=== PATIENT | female | born 1960 | race African-American/Black ===

== ENCOUNTER 2017-07-12 07:54 | Observation (INO) ==
[2017-07-12] MEDS ORDERED: *HR* OxyCODONE Immed Rel 5 MG TABLET PO ONE (08:14)
--- NOTE | 2017-07-12 08:14 | Emergency Department Note ---
Disposition Clinical Impression: Stroke Qualifiers: CVA mechanism: unspecified Qualified Code(s): I63.9 - Cerebral infarction, unspecified Rib contusion Qualifiers: Encounter type: initial encounter Laterality: right Qualified Code(s): S20.211A - Contusion of right front wall of thorax, initial encounter Fall Qualifiers: Encounter type: initial encounter Qualified Code(s): W19.XXXA - Unspecified fall, initial encounter Disposition: Admitted As Inpatient Condition: Good Referrals: NONE,PCP [Non-Partnered Physician] - Forms: ED Satisfaction Letter Fall HPI - General Chief Complaint: ED Fall Stated Complaint: FELL Time Seen by Provider: 07/12/17 08:00 Source: EMS Mode of arrival: ambulatory Limitations: no limitations Nursing Notes Reviewed: Yes Vital Signs Reviewed: Yes - History of Present Illness HPI Narrative: 56-year-old female with past medical history of diabetes and seizures presents for evaluation of chest pain. Patient states that she awoke with right-sided chest pain. She was with her neighbor last night drinking. She states she cannot remember how much she was drinking. Her neighbor states that she fell. She has unknown head injury or LOC. Patient states that the fall occurred on this right side and that her friend is worried she may have fractured ribs. The patient has significant tenderness to palpation of the lower anterior chest as well as right lateral ribs. Patient has no abdominal tenderness. Patient has no loss of motor or sensory function to the extremities. Patient's chest pain is worse with inspiration. Not worse with exertion. Sharp in nature. - Related Data Home Medications Medication Instructions Recorded Confirmed Citalopram [CeleXA] 10 mg PO DAILY 01/29/17 07/10/17 Enalapril Maleate [Vasotec] 2.5 mg PO DAILY 01/29/17 07/10/17 Gabapentin [Neurontin] 1 tab PO TID 01/29/17 07/10/17 Ipratropium/Albuterol Neb [Duoneb] 1 inh PO Q4HR PRN 01/29/17 07/10/17 Phenytoin ER [Dilantin ER] 100 mg PO TID 01/29/17 07/10/17 clonazePAM [Klonopin] 1 tab PO BID 01/29/17 07/10/17 Atorvastatin [Lipitor] 40 mg PO HS 02/13/17 07/10/17 Nebulizer [Vixone Nebulizer] 1 each IH AD 02/13/17 07/10/17 Albuterol Sulfate [Albuterol 2 puff IH AD 07/10/17 07/10/17 Inhaler] Previous Rx's Medication Instructions Recorded Ibuprofen [Motrin] 800 mg PO Q6-8H PRN #30 tablet 12/28/15 Allergies Allergy/AdvReac Type Severity Reaction Status Date / Time sulfamethoxazole Allergy Itching Verified 07/12/17 08:03 [From Bactrim] trimethoprim [From Bactrim] Allergy Itching Verified 07/12/17 08:03 Review of Systems: CONSTITUTIONAL: No weight loss, fever, chills, weakness or fatigue. HEENT: Eyes: No visual changes. Ears, Nose, Throat: No hearing loss, difficulty talking or unable to swallow. SKIN: No rash or itching. CARDIOVASCULAR: Chest pain. RESPIRATORY: Pain with inspiration No shortness of breath, cough or sputum. GASTROINTESTINAL: No anorexia, nausea, vomiting or diarrhea. No abdominal pain or blood. GENITOURINARY: No burning on urination or hematuria. NEUROLOGICAL: No headache, dizziness, syncope, paralysis, ataxia, numbness or tingling in the extremities. No change in bowel or bladder control. 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 CLERICAL history: Reports: non-contributory - Social History Smoking Status: Current every day smoker Alcohol use: Reports: occasionally Drug use: Reports: none Physical Exam General appearance: NAD, conversant Eyes: anicteric sclerae, moist conjunctivae; PERRL HENT: Atraumatic; oropharynx clear with moist mucous membranes and no mucosal ulcerations Neck: Normal inspection; Trachea midline; FROM, supple Lungs: CTA, with normal respiratory effort and no intercostal retractions CV: RRR, no MRGs Abdomen: Soft, non-tender; no rebound or gaurding Extremities: No peripheral edema or extremity lymphadenopathy Skin: Normal temperature; no rash, ulcers or lesions Psych: Appropriate mood and affect Neuro: alert and oriented to person, place and time Musculoskeletal: Tenderness to palpation of the right anterior lateral chest. Patient has pain with movement of the right arm in relation to activation of these associated muscles. Full range of motion of the extremity with sensation intact. Patient has a hard time sitting up secondary to the amount of pain and causes her chest. - General Limitations: no limitations General appearance: alert, in no apparent distress Course - Reevaluation(s) Reevaluation #1: Patient continues to have significant pain despite treatment. On review of patients recent MRI, the patient has had an acute stroke. Further discussing with the patient patient will be brought into the hospital for for further stroke workup and evaluation as she has not had this yet. - Consultations Consultation #1: Discussed with hospitalist, Dr. Swanson, pt accepted for admission. Vital Signs Temperature 97.6 F 07/12/17 07:56 Pulse Rate 72 07/12/17 07:56 Respiratory Rate 16 07/12/17 07:56 Blood Pressure 158/96 07/12/17 07:56 O2 Sat by Pulse Oximetry 95 07/12/17 07:56 Temperature 97.6 F 07/12/17 07:56 Pulse Rate 65 07/12/17 11:27 Respiratory Rate 16 07/12/17 11:27 Blood Pressure 154/78 07/12/17 11:27 O2 Sat by Pulse Oximetry 95 07/12/17 11:27 Oxygen Delivery Oxygen Delivery Room Air Fall - Medical Records Medical records reviewed: Yes I reviewed the patient's medical records. - Lab Data Lab results reviewed: Yes I reviewed the patient's lab results. Result diagrams: 07/12/17 08:59 07/12/17 08:59 Lab Results 07/12/17 07/12/17 07/12/17 Range/Units 08:25 08:59 08:59 WBC 9.5 (4.3-11.1) K/mcL RBC 4.54 (3.82-4.97) M/mcL Hgb 13.3 (11.5-15.4) g/dL Hct 40.2 (35.3-44.9) % MCV 88.5 (83.0-100.0) fL MCH 29.3 (28.0-33.3) pg MCHC 33.1 (31.6-35.5) g/dL RDW 14.6 H (11.5-14.5) % Plt Count 202 (140-400) K/mcL MPV 11.3 (9.4-12.4) fL Immature Gran % 0.5 (0-4) % Seg Neutrophils % 74.5 % Lymphocytes % 19.3 % Monocytes % 4.5 % Eosinophils % 1.0 % Basophils % 0.2 % Neutrophils # 7.1 (1.6-8.9) K/mcL Lymphocytes # 1.8 (0.6-4.6) K/mcL Monocytes # 0.4 (0.0-1.3) K/mcL Eosinophils # 0.1 (0.0-0.6) K/mcL Basophils # 0.0 (0.0-0.2) K/mcL Sodium 143 (136-145) mEq/L Potassium 3.9 (3.5-4.5) mEq/L Chloride 111 H (98-109) mEq/L Carbon Dioxide 21 (19-29) mEq/L BUN 11 (7-20) mg/dL Creatinine 0.64 (0.57-1.11) mg/dL Est GFR ( Amer) > 60 (> 60) Est GFR (Non-Af Amer) > 60 (> 60) BUN/Creatinine Ratio 17 (6-26) Glucose 172 H (70-99) mg/dL Calculated Osmolality 299 (280-300) Calcium 9.1 (8.6-10.8) mg/dL Troponin I (0-0.03) ng/mL Urine Color Yellow (Yellow) Urine Clarity Clear (Clear) Urine pH 5.5 (5.0-8.0) pH Units Ur Specific [place] 1.015 (1.010-1.025) Urine Protein Negative (Neg-Trace) mg/dL Urine Glucose (UA) 250 H (Normal) mg/dL Urine Ketones Trace H (Negative) mg/dL Urine Blood Negative (Negative) Urine Nitrite Negative (Negative) Urine Bilirubin Negative (Negative) Urine Urobilinogen Normal (Normal) mg/dL Ur Leukocyte Esterase Negative (Negative) Ur Culture Indicated? NO (NO) 07/12/17 Range/Units 08:59 WBC (4.3-11.1) K/mcL RBC (3.82-4.97) M/mcL Hgb (11.5-15.4) g/dL Hct (35.3-44.9) % MCV (83.0-100.0) fL MCH (28.0-33.3) pg MCHC (31.6-35.5) g/dL RDW (11.5-14.5) % Plt Count (140-400) K/mcL MPV (9.4-12.4) fL Immature Gran % (0-4) % Seg Neutrophils % % Lymphocytes % % Monocytes % % Eosinophils % % Basophils % % Neutrophils # (1.6-8.9) K/mcL Lymphocytes # (0.6-4.6) K/mcL Monocytes # (0.0-1.3) K/mcL Eosinophils # (0.0-0.6) K/mcL Basophils # (0.0-0.2) K/mcL Sodium (136-145) mEq/L Potassium (3.5-4.5) mEq/L Chloride (98-109) mEq/L Carbon Dioxide (19-29) mEq/L BUN (7-20) mg/dL Creatinine (0.57-1.11) mg/dL Est GFR ( Amer) (> 60) Est GFR (Non-Af Amer) (> 60) BUN/Creatinine Ratio (6-26) Glucose (70-99) mg/dL Calculated Osmolality (280-300) Calcium (8.6-10.8) mg/dL Troponin I 0.00 (0-0.03) ng/mL Urine Color (Yellow) Urine Clarity (Clear) Urine pH (5.0-8.0) pH Units Ur Specific [place] (1.010-1.025) Urine Protein (Neg-Trace) mg/dL Urine Glucose (UA) (Normal) mg/dL Urine Ketones (Negative) mg/dL Urine Blood (Negative) Urine Nitrite (Negative) Urine Bilirubin (Negative) Urine Urobilinogen (Normal) mg/dL Ur Leukocyte Esterase (Negative) Ur Culture Indicated? (NO) - Radiology Data Radiology results reviewed: Yes I reviewed the patient's radiology results. - EKG Data EKG attestation: Yes I reviewed and interpreted this EKG. EKG results narrative: EKG shows sinus rhythm with ventricular rate of 69 bpm. AK interval 147. QRS 98. QTC 435. Nonspecific T-wave abnormalities. EKG unchanged from previous EKG of 05/11/17. Attestation Statement - Attestation Attestation: I examined this patient and my medical decision-making was reviewed with the Resident Physician. I agree with the documented findings, disposition and treatment plan as described except to the extent set forth below. Patient to ED after a fall. Patient states she was drinking and intoxicated last night. She fell at some point because she was intoxicated. Playing a rib pain. Patient also complaining of facial numbness for which she had a recent MRI but does not know the result. On examination she is awake alert pleasant in no acute distress. She is oriented. Appropriate. Does not appear intoxicated. Tenderness over the right lateral ribs. Plan. Cardiac workup with imaging of her ribs. No rib fracture evident on ribs series. The patient does have a subacute stroke on her head CT. We will limit further stroke workup.
[2017-07-12 08:51] LABS: Color,Urine Yellow (Yellow)
[2017-07-12 08:52] LABS: Bilirubin,Urine Negative (Negative); Blood,Urine Negative (Negative); Clarity,Urine Clear (Clear); Glucose,Urine (UA) 250 mg/dL (Normal); Ketones,Urine Trace mg/dL (Negative); Nitrite,Urine Negative (Negative); PH,Urine 5.5 pH Units (5.0-8.0); Protein,Urine Negative (Neg-Trace); Specific Gravity,Urine 1.015 (1.010-1.025); Urobilinogen,Urine Normal (Normal)
[2017-07-12 08:53] LABS: Leukocyte Esterase,Urine Negative (Negative)
[2017-07-12 09:09] LABS: Basophils % 0.2 %; Eosinophils # 0.1 K/mcL (0.0-0.6); Hematocrit 40.2 % (35.3-44.9); Hemoglobin 13.3 g/dL (11.5-15.4); Immature Granulocytes % 0.5 % (0-4); Lymphocytes # 1.8 K/mcL (0.6-4.6); Lymphocytes % 19.3 %; Mean Corpuscular HGB Conc 33.1 g/dL (31.6-35.5); Mean Corpuscular Hemoglobin 29.3 pg (28.0-33.3); Mean Corpuscular Volume 88.5 fL (83.0-100.0); Mean Platelet Volume 11.3 fL (9.4-12.4); Monocytes # 0.4 K/mcL (0.0-1.3); Monocytes % 4.5 %; Neutrophils # 7.1 K/mcL (1.6-8.9); Platelet Count 202 K/mcL (140-400); Red Blood Count 4.54 M/mcL (3.82-4.97); Red Cell Distribution Width 14.6 % (11.5-14.5); Segmented Neutrophils % 74.5 %
[2017-07-12 09:24] LABS: BUN/Creatinine Ratio 17 (6-26); Blood Urea Nitrogen 11 mg/dL (7-20); Calcium 9.1 mg/dL (8.6-10.8); Carbon Dioxide 21 mEq/L (19-29); Chloride 111 mEq/L (98-109); Glucose 172 mg/dL (70-99); Osmolality,Calculated 299 (280-300); Potassium 3.9 mEq/L (3.5-4.5); Sodium 143 mEq/L (136-145); eGFR For African Americans > 60 (> 60); eGFR For Non-African Americans > 60 (> 60)
[2017-07-12] MEDS ORDERED: Ondansetron 4 MG/2 ML VIAL IVP PRN (13:18)
[2017-07-12] MEDS ORDERED: Ibuprofen 400 MG TABLET PO PRN (13:23)
[2017-07-12] MEDS ORDERED: Naloxone 0.4 MG/ML INJ IVP PRN (13:23)
[2017-07-12] MEDS ORDERED: Aspirin 325 MG TABLET PO ONE (13:35)
[2017-07-12] MEDS ORDERED: Acetaminophen 325 MG TABLET PO PRN (13:37)
[2017-07-12] MEDS ORDERED: Dextrose Gel 15 GM PO PRN ×2 (13:45)
[2017-07-12] MEDS ORDERED: *HR* Dextrose 50 % in Water (Syg) 50 ML SYRINGE IVP PRN (13:45)
[2017-07-12] MEDS ORDERED: D5% in Water 1,000 ML IVC PRN (13:45)
--- NOTE | 2017-07-12 13:48 | Internal Med History&Physical ---
Date of Encounter: 07/12/17 Time of Encounter: 13:00 Assessment and Plan (1) Lacunar infarction Current visit: Yes Status: Acute 1 patient has been experiencing difficulty ambulating as well as feeling off balanced. She has been experiencing right-sided numbness and bilateral lower extremity weakness which has been going on for the past few weeks. MRI completed on 07/08/2017 did reveal acute distress of acute lacunar infarct within the periatrial white matter of the left cerebral hemisphere. At that time patient was advised to go to the ER however she had declined. We will continue to monitor patient's neuro status 2 consult neurology -spoke with Dr. 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 insulin use: with chcf use Qualified Code(s): E11.9 - Type 2 diabetes mellitus without complications ; Z79.4 - intermediate designer (current) use of insulin (3) HTN (hypertension) Current visit: No Status: Chronic 1 we will continue with home medications of Vasotec goal is to maintain systolic less than 160 2 low-sodium diet Qualifiers: Hypertension type: essential hypertension Qualified Code(s): I10 - Essential (primary) hypertension (4) Rib contusion Current visit: Yes Status: Acute Qualifiers: Encounter type: initial encounter Laterality: right Qualified Code(s): S20.211A - Contusion of right front wall of thorax, initial encounter (5) Lung cancer Current visit: No Status: Acute Qualifiers: Laterality: right Lung location: lower lobe of lung Qualified Code(s): C34.31 - Malignant neoplasm of lower lobe, right bronchus or lung (6) Seizure disorder Current visit: No Status: Chronic 1 patient has past history of seizure disorder last seizure was 2 years ago. Continue with seizure precautions 2 continue with Dilantin 3 obtain Dilantin level (7) DVT prophylaxis Current visit: No Status: Acute 1 SCD Internal Medicine - H&P: HPI Chief complaint: R sided rib pain Admitted From: Emergency Dept Plans for Post Hospital Care: Home History of present illness: Ms. Miguel is a 56 year old female past cervical history of diabetes hypertension adenocarcinoma right lower lung seizures-last seizure was 2 years ago. According to the patient she has been experiencing right-sided numbness however no tingling in lower extremity weakness bilaterally as well as feeling off balanced with some falls over the past few weeks. She was recently diagnosed with adenocarcinoma of the lung in March and has been receiving radiation therapy her last treatment was a couple weeks ago. She did have an MRI on 07/08/2017 per primary care physician. That did reveal acute subacute lacunar infarct of the left cerebral hemisphere. She was advised at that time to go to the ER which she did decline. Apparently last night she was out with some friends drinking. She did experience a fall however she is not sure if she had struck her head or any LOC. She did fall on her right side. When she awoke this a.m. she was experiencing right-sided chest pain. She presented to the ER with the above complaints. According to ER records lab work was unremarkable chest x-ray did not reveal any rib fractures. CT of head was with no intracranial abnormalities. Due to recent MRI patient's history of numbness and she is complaining of bilateral lower extremity weakness she has been admitted for further workup evaluation. Presently the patient complains of right-sided rib pain. Pain is worse upon inspiration sharp in nature she has significant tenderness to palpation of the lower anterior chest as well as the right lateral ribs. Her lung sounds are clear heart sounds are regular S1 and S2 with no rubs clicks, murmurs noted. Abdomen soft nontender. No pedal edema noted. Neuro exam cranial nerves II through XII are intact patient does follow simple commands pupils are equal and reactive bilaterally. Grafts are equal and strong bilaterally upper extremity strength 5/5. Lower extremity strength 4 /5. She does complain of some dizziness with positional change. She denies any shortness of breath abdominal pain fevers chills nausea vomiting or diarrhea. Presently she is hemodynamically stable. I reviewed this case with who agrees with plan. Past Med Surg Social Fam HX - Past Medical History Medical history: diabetes, GERD, hyperlipidemia, hypertension, seizures, other Psychiatric history: no psych history - Past Surgical History Surgical History: cholecystectomy, TAJ/BSO, other - Social History Smoking Status: Current every day smoker Smokeless Tobacco Status: No Alcohol use: occasionally Drug use: none - Family History Father Living Status: Cause of : Emphysema Mother Living Status: Cause of : Breast cancer Internal Medicine - H&P: Meds Ibuprofen [Motrin] 800 mg PO Q6-8H PRN #30 tablet 12/28/15 [Rx] Enalapril Maleate [Vasotec] 2.5 mg PO DAILY 01/29/17 [History] Gabapentin [Neurontin] 800 mg PO TID 01/29/17 [History] Ipratropium/Albuterol Neb [Duoneb] 1 inh PO Q4HR PRN 01/29/17 [History] Phenytoin ER [Dilantin ER] 100 mg PO TID 01/29/17 [History] Atorvastatin [Lipitor] 40 mg PO HS 02/13/17 [History] Albuterol Sulfate [Albuterol Inhaler] 2 puff IH AD PRN 07/10/17 [History] Tramadol HCl [Ultram] 50 mg PO TID PRN 07/12/17 [History] Allergies sulfamethoxazole [From Bactrim] Allergy (Verified 07/12/17 08:03) Itching trimethoprim [From Bactrim] Allergy (Verified 07/12/17 08:03) Itching All Systems PM: A 10-system review of systems was performed and is negative for pertinent findings except as documented above in the HPI. - Constitutional Constitutional: weakness - Cardiovascular Cardiovascular ROS IM: chest pain - Respiratory Respiratory: pain on inspiration - Gastrointestinal Gastrointestinal: no abdominal pain, no diarrhea, no hematemesis, no hematochezia, no melena, no nausea, no vomiting - Genitourinary Genitourinary: no change in urinary stream, no dysuria, no flank pain, no hematuria - Musculoskeletal Musculoskeletal ROS IM: no numbness, no tingling - Integumentary Integumentary IM: no rash, no unusual bruising - Neurological Neurological ROS: disequilibrium, frequent falls, numbness, weakness, no confusion, no convulsions, no focal weakness, no tingling, no tremor(s) - Hematologic/Lymphatic Hematologic/Lymphatic: no easy bruising - Constitutional Vitals: Temp Pulse Resp BP Pulse Ox 97.6 F 65 16 159/89 95 07/12/17 07:56 07/12/17 11:27 07/12/17 12:39 07/12/17 12:39 07/12/17 11:27 General appearance: Present: A&O X 3, answers questions appropriately - Head Head exam: Present: atraumatic, normocephalic - Eye Eye exam: Present: PERRL, conjuntiva pink, sclera anicteric Pupils: Present: PERRL - Neck Neck exam general surgery: Present: supple, trachea midline. Absent: lymphadenopathy - Respiratory Respiratory exam: Present: CTAB. Absent: accessory muscle use, rales, rhonchi, wheezes - Cardiovascular Cardiovascular exam: Present: RRR, +S1, +S2. Absent: diastolic murmur, gallop, rubs, systolic murmur - GI/Abdominal GI/Abdominal exam: Present: normal bowel sounds, soft, no peritoneal signs. Absent: distended, tenderness - Extremities Exam Extremities exam: Present: warm, radial pulses palpable and symmetrical. Absent : calf tenderness, cyanotic, pedal edema - Neurological Exam Neurological exam: Present: CN II-XII intact, oriented X3, no focal deficits. Absent: pronater drift, facial droop, speech deficit Additional comments: Lower extremity weakness bilaterally - Skin Skin exam: Present: dry, intact Internal Med - H&P Results - Labs CBC & Chem 7: 07/12/17 08:59 07/12/17 08:59 - EKG Data EKG shows normal: sinus rhythm Rate: normal - EKG Data When compared to previous EKG: there is no significant change - Diagnostic Studies Other Images Additional comments: Head CT 07/12/17 08:09 IMPRESSION: No acute intracranial abnormality. D/ / Jean-Claude Saab MD / Jean-Claude Saab MD Interpreting Provider: Jean-Claude Saab MD Ribs w/Chest X-Ray 07/12/17 08:09 IMPRESSION: No evident rib fracture. Mild right basilar opacity, likely atelectasis. Radiographic follow-up in 6 to 8 weeks is suggested to ensure resolution. D/ / 07/12/2017 10:28:20 Angel Gomez MD / erica Interpreting Provider: Angel Gomez MD
[2017-07-12] MEDS: Gabapentin 400 MG CAPSULE PO SCH ×2 (14:34→20:46)
[2017-07-12] MEDS: Nicotine 14 MG PATCH.TD24 TD SCH (14:35)
[2017-07-12] MEDS: Insulin LISPRO 300 UNITS/3 ML VIAL SQ SCH (16:34)
[2017-07-12] MEDS: *HR* HYDROcodone/Acet 5/325 mg TABLET PO PRN (18:59)
[2017-07-12] MEDS ORDERED: Insulin LISPRO 300 UNITS/3 ML VIAL SQ SCH (21:00)
[2017-07-12] MEDS: *HR* HYDROmorphone (PF) 1 MG/ML SYRINGE IVP PRN (21:57)
[2017-07-13] MEDS: *HR* HYDROmorphone (PF) 1 MG/ML SYRINGE IVP PRN (04:12)
[2017-07-13 05:29] LABS: Hemoglobin A1C 7.6 %
[2017-07-13 05:41] LABS: BUN/Creatinine Ratio 26 (6-26); Blood Urea Nitrogen 19 mg/dL (7-20); Calcium 9.2 mg/dL (8.6-10.8); Carbon Dioxide 22 mEq/L (19-29); Chloride 109 mEq/L (98-109); Chol/HDL Ratio 3.2 (0-4.9); Cholesterol 193 mg/dL (< 200); Glucose 257 mg/dL (70-99); HDL Cholesterol 60 mg/dL (40-59); LDL Cholesterol,Calculated 93 mg/dL (0-99); Osmolality,Calculated 299 (280-300); Potassium 4.2 mEq/L (3.5-4.5); Sodium 139 mEq/L (136-145); Triglycerides 198 mg/dL (< 150); eGFR For African Americans > 60 (> 60); eGFR For Non-African Americans > 60 (> 60)
[2017-07-13 06:35] LABS: Hematocrit 39.8 % (35.3-44.9); Hemoglobin 12.6 g/dL (11.5-15.4); Mean Corpuscular HGB Conc 31.7 g/dL (31.6-35.5); Mean Corpuscular Hemoglobin 29.2 pg (28.0-33.3); Mean Corpuscular Volume 92.3 fL (83.0-100.0); Mean Platelet Volume 12.1 fL (9.4-12.4); Platelet Count 172 K/mcL (140-400); Red Blood Count 4.31 M/mcL (3.82-4.97)
--- NOTE | 2017-07-13 07:07 | Electrocardiograph Report ---
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
[2017-07-13] MEDS: Gabapentin 400 MG CAPSULE PO SCH ×2 (08:46→15:06)
[2017-07-13] MEDS: Nicotine 14 MG PATCH.TD24 TD SCH (08:48)
[2017-07-13] MEDS: *HR* HYDROcodone/Acet 5/325 mg TABLET PO PRN (08:49)
[2017-07-13] MEDS: Insulin LISPRO 300 UNITS/3 ML VIAL SQ SCH ×2 (08:50→12:05)
[2017-07-13] MEDS ORDERED: Aspirin 325 MG TABLET PO SCH (09:00)
[2017-07-13 11:48] VITALS: BP 141/80
--- NOTE | 2017-07-13 15:20 | Neurology - Consult Note ---
Date of Encounter: 07/13/17 Time of Encounter: 15:16 Assessment and Plan (1) Fall Current Visit: Yes Status: Acute I believe that the fall was likely primarily due to alcohol intoxication. Certainly other factors may have been superimposed. 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 I am not convinced that the small infarct identified on the MRI is of any clinical significance pertaining to the fall. She does have risk factors for stroke along with those mentioned above, she is hypertensive and she smokes She should start aspirin milligrams daily indefinitely and follow up with her family provider upon discharge to implement a smoking cessation program. Certainly I would advocate in therapy and aggressive management of her hypertension. I did talk to her once again about the importance of medical compliance. She did have echocardiogram and carotid duplex Doppler study both of which were unrevealing. Her Dilantin level is always low because of her noncompliance. However in the past I have the treatment procedures to nonepileptic events and then therefore I am not concerned about her subtherapeutic phenytoin level. You may discharge her at your discretion. I will reevaluate her at your request. Qualifiers: Encounter type: initial encounter Qualified Code(s): W19.XXXA - Unspecified fall, initial encounter History of Present Illness HPI: Ms. Miguel is a 56 year old female who is well-known to me due to a history of nonepileptic seizures and medical noncompliance who is seen for neurological evaluation secondary to recent episode of falling and an abnormal MRI scan of the brain. Carole tells me that she and one of her friends had been out drinking 2 days ago. She admits that she was "tipsy" and had a fall. Her friend told her that she fell pretty hard. She will then the next day she had significant pain in the right costal region and decided to come to the hospital for further assessment. Apparently she had seen her primary care provider Dr. Bose a few days prior, who ordered an MRI scan of her head due to complaints of imbalance. The MRI did reveal a small area of acute to subacute infarction in the region of the left trigone in the periventricular white matter. I did personally review the MRI images. There are also multiple lacunar infarctions in the basal ganglia and scattered throughout the white matter. Also has a history of diabetes which is poorly controlled, her Dilantin level was subtherapeutic at 3.1. She is also hypertensive which has been poorly controlled. She continues to smoke cigarettes. Past Med Surg Social Fam HX - Past Medical History Medical history: diabetes, GERD, hyperlipidemia, hypertension, seizures, other Psychiatric history: no psych history - Past Surgical History Surgical History: cholecystectomy, TAJ/BSO, other - Social History Smoking Status: Current every day smoker Smokeless Tobacco Status: No Alcohol use: occasionally Drug use: none - Family History Father Living Status: Cause of : Emphysema Mother Living Status: Cause of : Breast cancer Medications and Allergies Ibuprofen [Motrin] 800 mg PO Q6-8H PRN #30 tablet 12/28/15 [Rx] Enalapril Maleate [Vasotec] 2.5 mg PO DAILY 01/29/17 [History] Gabapentin [Neurontin] 800 mg PO TID 01/29/17 [History] Ipratropium/Albuterol Neb [Duoneb] 1 inh PO Q4HR PRN 01/29/17 [History] Phenytoin ER [Dilantin ER] 100 mg PO TID 01/29/17 [History] Atorvastatin [Lipitor] 40 mg PO HS 02/13/17 [History] Albuterol Sulfate [Albuterol Inhaler] 2 puff IH AD PRN 07/10/17 [History] Tramadol HCl [Ultram] 50 mg PO TID PRN 07/12/17 [History] Allergies sulfamethoxazole [From Bactrim] Allergy (Verified 07/12/17 08:03) Itching trimethoprim [From Bactrim] Allergy (Verified 07/12/17 08:03) Itching All Systems: A 10-system review of systems was performed and is negative for pertinent findings except as documented above in the HPI. Review of Systems: Review of systems is consistent with a history of present illness and otherwise negative. Physical Examination - Vital Signs Vital Signs: Initial Vital Signs Temp Pulse Resp BP Pulse Ox 97.6 F 72 16 158/96 95 07/12/17 07:56 07/12/17 07:56 07/12/17 07:56 07/12/17 07:56 07/12/17 07:56 - Neurologic Motor examination - right side: 1/5: wrist extension ("), 4/5: deltoids (give way/ poor effort), biceps ("), triceps ("), wrist flexion ("), machine shop instructor ("), hip flexors ("), tibialis Anterior ("), quadriceps ("), toe extension (EHL) ("), plantarflexion (") Motor examination - left side: 04/03: deltoids, biceps, triceps, wrist flexion, wrist extension, hip flexors, machine shop instructor, quadriceps, tibialis Anterior, toe extension (EHL), plantarflexion Detailed sensory examination: other (Decreased sensation to pinprick distally in all modalities.) Reflex and gait examination: other (Deep tendon reflexes are diminished throughout.) Mental Status Examination: awake, alert, oriented to person, oriented to place, oriented to time, follows commands appropriately, answers questions appropriately, no agnosia, no aphasia, no aproxia Cranial nerve examination: PERRL, EOMI, visual esposito intact, corneal reflexes brisk symmetrically, sensory to face intact, mastication intact, no facial asymmetry is present, no dysarthria, hearing is intact symmetrically, soft palate elevates bilaterally upon phonation, gag reflex intact, flexes SCM and trapezius muscles symmetrically with full power, tongue protrudes midline, no atrophy or facial fasiculations present Cerebellar examination: no dysmetria, performs finger to nose and heel to naqvi symmetrically without ataxia, no gait ataxia, no truncal ataxia, no difficulty with rapid alternating movements Results - Laboratory Findings CBC and BMP: 07/13/17 03:28 07/13/17 03:28 Abnormal lab findings: Abnormal lab results RDW 15.0 % (11.5-14.5) H 07/13/17 03:28 Glucose 257 mg/dL (70-99) H 07/13/17 03:28 POC Glucose 196 (58-89) H 07/12/17 19:40 Hemoglobin A1c 7.6 % (-5.6) H 07/13/17 03:28 Triglycerides 198 mg/dL (< 150) H 07/13/17 03:28 VLDL Cholesterol, Calc 40 mg/dL (< 31) H 07/13/17 03:28 HDL Cholesterol 60 mg/dL (40-59) H 07/13/17 03:28 Urine Glucose (UA) 250 mg/dL (Normal) H 07/12/17 08:25 Urine Ketones Trace mg/dL (Negative) H 07/12/17 08:25 Phenytoin 3.1 mcg/mL (10-20) L 07/13/17 03:28 Consult Discharge Plan - Plan Referrals: Brea Bose MD [Primary Care Provider] - 07/22/17 1:45 pm
--- NOTE | 2017-07-13 15:53 | Discharge Summary ---
Date of Encounter: 07/13/17 Time of Encounter: 10:00 - Discharge Diagnosis (1) Lacunar infarction Priority: Primary Status: Acute (2) Fall Priority: Primary Status: Acute Qualifiers: Encounter type: initial encounter Qualified Code(s): W19.XXXA - Unspecified fall, initial encounter (3) Rib contusion Priority: Primary Status: Acute Qualifiers: Encounter type: initial encounter Laterality: right Qualified Code(s): S20.211A - Contusion of right front wall of thorax, initial encounter (4) Tobacco abuse Priority: Secondary Status: Chronic (5) Lung cancer Priority: Secondary Status: Chronic Qualifiers: Laterality: right Lung location: lower lobe of lung Qualified Code(s): C34.31 - Malignant neoplasm of lower lobe, right bronchus or lung (6) Anxiety Priority: Secondary Status: Chronic (7) Seizure disorder Priority: Secondary Status: Chronic (8) Diabetes mellitus Priority: Secondary Status: Chronic Qualifiers: Diabetes mellitus type: type 2 Diabetes mellitus complication status: with unspecified complications Diabetes mellitus care home insulin use: with care home use Qualified Code(s): E11.8 - Type 2 diabetes mellitus with unspecified complications; Z79.4 - longterm (current) use of insulin (9) HTN (hypertension) Priority: Secondary Status: Chronic Qualifiers: Hypertension type: essential hypertension Qualified Code(s): I10 - Essential (primary) hypertension - Discharge Medications Prescriptions: HYDROcodone/Acet 5/325 mg [[place] 5-325 mg] 1 tab PO Q6HR PRN #20 tab PRN Reason: Pain Aspirin 325 mg PO DAILY #30 tab Labetalol [Trandate] 200 mg PO BID #60 tab Lisinopril [Zestril] 10 mg PO DAILY #30 tab Home Medications: Ibuprofen [Motrin] 800 mg PO Q6-8H PRN #30 tablet 12/28/15 [Rx] Gabapentin [Neurontin] 800 mg PO TID 01/29/17 [History] Ipratropium/Albuterol Neb [Duoneb] 1 inh PO Q4HR PRN 01/29/17 [History] Phenytoin ER [Dilantin ER] 100 mg PO TID 01/29/17 [History] Atorvastatin [Lipitor] 40 mg PO HS 02/13/17 [History] Albuterol Sulfate [Albuterol Inhaler] 2 puff IH AD PRN 07/10/17 [History] Aspirin 325 mg PO DAILY #30 tab 07/13/17 [Rx] HYDROcodone/Acet 5/325 mg [[place] 5-325 mg] 1 tab PO Q6HR PRN #20 tab 07/13/17 [ Rx] Labetalol [Trandate] 200 mg PO BID #60 tab 07/13/17 [Rx] Lisinopril [Zestril] 10 mg PO DAILY #30 tab 07/13/17 [Rx] Allergies/Adverse Reactions: Allergies sulfamethoxazole [From Bactrim] Allergy (Verified 07/12/17 08:03) Itching trimethoprim [From Bactrim] Allergy (Verified 07/12/17 08:03) Itching Procedures/tests Complete & Pending: Procedures Performed prior 72 hours Category Date Time Status EV carotid duplex imaging BI Routine Y 07/13/17 13:28 Completed EV echo with saline Routine Y 07/13/17 13:27 Completed Date of admission: 07/12/17 12:15 Primary care physician: Brea Bose Consults: 07/12/17 13:21 Consult to Occupational Therapy [CONS] Routine Comment: Evaluate, develop and implement POC Reason for Consult: weakness falls Consult to Physical Therapy [CONS] Routine Comment: Evaluate, develop and implement POC Reason for Consult: weakness falls 07/12/17 13:30 Consult to Neurology [CONS] Routine Consulting Provider: [facility] Reason for Consult: weakness - MRI 07/09/2017 acute sub acute lacunar infarct Time Notified: 13:31 Call Completed: Yes 07/12/17 14:35 Consult to Nutrition [CONS] Routine Comment: Consulting Provider: NUTRITION Reason for Dietary Consult: Other Consult to Mechanical Engineering Advisor [CONS] Routine Reason for SW Consult: NO INSURANCE ADVANCE DIRECTIVES Discharging clinician: Kaylen Khan Anticipated date of discharge: 07/13/17 - Patient Status Disposition: Home Health Service Condition: Good Functional capacity at discharge: uses cane/walker Overall status at discharge: patient is progressing back to baseline - Discharge Instructions Instructions: Labetalol (By mouth), Lisinopril (By mouth), Hydrocodone/ Acetaminophen (By mouth), Aspirin (By mouth), Fall Prevention (DC) Follow Up With: Brea Bose MD [Primary Care Provider] - 07/22/17 1:45 pm Additional Instructions: We set you up with [facility], in order to strengthen you. They should be coming to your house within the next day or two. - Diet and Activity Activity: as per physical therapy Diet: diabetic diet, low fat, low cholesterol, low salt diet Hospital course: Ms. Miguel is a 56 year old female with history of hypertension, diabetes, tobacco abuse was admitted with intermittent episodes of right facial numbness and lower extremity weakness after sustaining a fall at home. Patient was noted to have acute to subacute lacunar infarct in the left parietal lobe on MRI brain that was done as an outpatient on 07/08/2017 at which time she refused to present to the emergency room. Initial workup revealed uncontrolled hypertension, hemoglobin A1c 7.6%, LDL cholesterol 93. CT head showed no acute abnormality. Patient complained of significant right-sided chest pain and right rib x-ray series revealed no evidence of acute fractures. Patient was started on increased dose of lisinopril and labetalol was added for appropriate blood pressure control. Smoking cessation counseling was given for 4 minutes and patient verbalized understanding. She reports trying to cut down on her own. Physical and occupational therapy evaluation was completed and recommended home health services. Neurology was consulted and recommended continuing high-dose aspirin lifelong. Lacunar infarct is likely due to uncontrolled hypertension and this is likely unrelated to her presentation of weakness and fall, which seemed to be more related to alcohol intoxication prior to fall. At this time, patient is medically stable for discharge with outpatient follow-up. Time spent discussing smoking cessation with patient: 3 to 10 minutes - Time Spent with Patient Total time spent providing and/or coordinating discharge services: Greater than 30 minutes (40 min) - Constitutional Vitals: Temp Pulse Resp BP Pulse Ox 98.1 F 60 18 141/80 95 07/13/17 11:43 07/13/17 11:43 07/13/17 11:43 07/13/17 11:43 07/13/17 11:43 General appearance: Present: A&O X 3, answers questions appropriately - Respiratory Respiratory exam: Present: CTAB. Absent: accessory muscle use, rales, rhonchi, wheezes - Cardiovascular Cardiovascular exam: Present: RRR, +S1, +S2. Absent: diastolic murmur, gallop, rubs, systolic murmur
--- NOTE | 2017-07-13 15:59 | Physician Discharge Referral ---
Home Health/Hosp Referral Info Transfer to: Home Health Attending Provider: Kaylen Khan Provider in Charge Post Discharge: PCP - Diagnosis (1) Lacunar infarction Priority: Primary Status: Acute (2) Fall Priority: Primary Status: Acute (3) Rib contusion Priority: Primary Status: Acute (4) Tobacco abuse Priority: Secondary Status: Chronic (5) Lung cancer Priority: Secondary Status: Chronic (6) Anxiety Priority: Secondary Status: Chronic (7) Seizure disorder Priority: Secondary Status: Chronic (8) Diabetes mellitus Priority: Secondary Status: Chronic (9) HTN (hypertension) Priority: Secondary Status: Chronic - Respiratory Orders Smoking Cessation: Smoking cessation has been advised. For more information, call the [place] Tobacco Quit Line at 8-375-SQBK-NOW. - Diet/Nutrition Diet/Nutrition Orders: Cardiac, No Concentrated Sweets (diabetic) - Activity Activity Orders: Ambulate - Services Needed Following services are medically necessary services: Nursing, Physical Therapy, Occupational Therapy - Transfer Medications Prescriptions: HYDROcodone/Acet 5/325 mg [[place] 5-325 mg] 1 tab PO Q6HR PRN #20 tab PRN Reason: Pain Aspirin 325 mg PO DAILY #30 tab Labetalol [Trandate] 200 mg PO BID #60 tab Lisinopril [Zestril] 10 mg PO DAILY #30 tab Home Medications: Ibuprofen [Motrin] 800 mg PO Q6-8H PRN #30 tablet 12/28/15 [Rx] Gabapentin [Neurontin] 800 mg PO TID 01/29/17 [History] Ipratropium/Albuterol Neb [Duoneb] 1 inh PO Q4HR PRN 01/29/17 [History] Phenytoin ER [Dilantin ER] 100 mg PO TID 01/29/17 [History] Atorvastatin [Lipitor] 40 mg PO HS 02/13/17 [History] Albuterol Sulfate [Albuterol Inhaler] 2 puff IH AD PRN 07/10/17 [History] Aspirin 325 mg PO DAILY #30 tab 07/13/17 [Rx] HYDROcodone/Acet 5/325 mg [[place] 5-325 mg] 1 tab PO Q6HR PRN #20 tab 07/13/17 [ Rx] Labetalol [Trandate] 200 mg PO BID #60 tab 07/13/17 [Rx] Lisinopril [Zestril] 10 mg PO DAILY #30 tab 07/13/17 [Rx] Allergies/Adverse Reactions: Allergies sulfamethoxazole [From Bactrim] Allergy (Verified 07/12/17 08:03) Itching trimethoprim [From Bactrim] Allergy (Verified 07/12/17 08:03) Itching Certification: Further, I certify that my clinical findings support that this patient is homebound (i.e. absences from home require considerable and taxing effort and are for medical reasons or jew services or infrequently or short duration when for other reasons) because: Homebound Reason: Patient requires assistance of a person or device to safely leave home, Leaving home requires considerable and taxing effort due to condition Attestation: My signature below is to certify that this patient is under my care and that I, or nurse practitioner, or a physician's market research assistant working with me, has a face-to -face encounter with this patient.
--- NOTE | 2017-07-14 17:26 | Carotid Imaging Report ---
Carotid Duplex Patient Name:Carole Miguel Order Number:[id number] Procedure Date:07/13/2017 Date:1960Age:56 yrs Gender:Female Lt BP:174 / 91 mmHg Rt.BP:174 / 94 mmHgHeart Rate: Location:[facility] Room #: 2NE16 Clean Out Driller:Jus Garcia RN, RDCS Referring MD:Melinda Schmitt CNP rn patient services:Brea Bose MD Reading MD:Emery Gibbons MD Primary Indications:Recent Lacunar Infarct Risk Factors Yes/No Hypertension Yes Diabetes Yes Hypercholesterolemia Yes Smoking Current Yes Hx of TIA Yes Hx of CVA Yes Anticoagulants No Hx of CAD/PTCA No Previous Vascular Surgery No Impressions: The right carotid artery is normal throughout. The left carotid artery has minimal plaque throughout. Recommendations: Test completed on 07/13/2017 at 7:35:00 am. Findings Carotid Duplex: Right: The right proximal common carotid artery has a PSV of 91 cm/s and a EDV of 15 cm/s. The right mid common carotid artery has a PSV of 72 cm/s and a EDV of 17 cm/s. The right distal common carotid artery has a PSV of 67 cm/s and a EDV of 19 cm/s. The right bifurcation has a PSV of 56 cm/s and a EDV of 19 cm/s. The right proximal internal carotid artery has a PSV of 63 cm/s and a EDV of 16 cm/s. The right mid internal carotid artery has a PSV of 58 cm/s and a EDV of 21 cm/s. The right distal internal carotid artery has a PSV of 94 cm/s and a EDV of 27 cm/s. The right eca has a PSV of 124 cm/s and a EDV of 14 cm/s. The right vertebral artery has a PSV of 59 cm/s and a EDV of 20 cm/s. Left: The left proximal common carotid artery has a PSV of 140 cm/s and a EDV of 25 cm/s. The left mid common carotid artery has a PSV of 94 cm/s and a EDV of 20 cm/s. There is nonstenotic plaque in the left distal common carotid artery with a PSV of 106 cm/s and a EDV of 31 cm/s. There is smooth heterogeneous plaque. There is nonstenotic plaque in the left bifurcation with a PSV of 83 cm/s and a EDV of 23 cm/s. There is smooth heterogeneous plaque. The left proximal internal carotid artery has a PSV of 56 cm/s and a EDV of 25 cm/s. The left mid internal carotid artery has a PSV of 72 cm/s and a EDV of 30 cm/s. The left distal internal carotid artery has a PSV of 58 cm/s and a EDV of 15 cm/s. The left eca has a PSV of 81 cm/s and a EDV of 16 cm/s. The left vertebral artery has a PSV of 48 cm/s and a EDV of 17 cm/s. Prior Study: No prior study available for comparison. Carotid Results Right PSV EDV Assessment Proximal CCA 91 15 Normal Mid CCA 72 17 Normal Distal CCA 67 19 Normal Bifurcation 56 19 Normal Proximal ICA 63 16 Normal Mid ICA 58 21 Normal Distal ICA 94 27 Normal ECA 124 14 Normal Vertebral Artery 59 20 Normal Left PSV EDV Assessment Proximal CCA 140 25 Normal Mid CCA 94 20 Normal Distal CCA 106 31 Non Stenotic Plaque Bifurcation 83 23 Non Stenotic Plaque Proximal ICA 56 25 Normal Mid ICA 72 30 Normal Distal ICA 58 15 Normal ECA 81 16 Normal Vertebral Artery 48 17 Normal Ratio's Right ICA/CCA Ratio: 1.31 ICA/CCA Values: 94/72 Left ICA/CCA Ratio: 0.77 ICA/CCA Values: 72/94 Updated by Emery Gibbons MD on 07/14/2017 5:19:16 PM electronically signed on 07/14/2017 5:19:28 PM with status of Final
== END 2017-07-13 16:50 | disposition home health service (06) ==
LOC: EMEROO 07:54 → 2NENU 07:54
PROVIDERS: ADMIT Internal Medicine Endocrinology, Diabetes & Metabolism; ATTEND Internal Medicine